=== PATIENT | female | born 1995 | race Caucasian/White ===

== ENCOUNTER 2019-05-15 11:51 | Emergency (ER) | payer SELFPAY ==
[~2019-05-15] VITALS: Ht 162.6 cm; Wt 50.0 kg
[~2019-05-15 11:51] MED LIST: ACET325T33 PO; FAMO-96 PO
[2019-05-15 12:05] VITALS: BP 112/57; PULSE 69; RESP 18; Ht 162.6 cm; Wt 50.0 kg
== END 2019-05-15 14:29 | disposition home or self-care (01) ==
LOC: FTE 11:51
DX: R10.13 Epigastric pain (principal)
CPT/HCPCS: 36415; 76705; 80053; 81001; 81025; 83690; 85025